=== PATIENT | male | born 1990 | race Caucasian/White ===

== ENCOUNTER → 2018-12-28 | Outpatient (CLI) | payer OTHER ==
--- NOTE | 2018-12-30 07:49 | REP ---
MRI RIGHT KNEE WITHOUT CONTRAST: 12/28/2018. Clinical history: Strain/sprain of the lateral collateral ligament right knee. Technique: Axial fat suppressed T2, coronal sagittal T1 with fat suppressed T2 and sagittal PD with T2 sequences. Findings: No prior study. Sagittal images show the PCL intact. The ACL does show contiguous fibers but some increased signal in the mid to distal course of the fibers suggest some strain. There is some fluid in the intercondylar notch. I cannot see a definite tear of the ACL. Medial meniscus shows some fluid posterior to the posterior horn and deep to the capsule representing meniscocapsular injury. The anterior and posterior horns of the medial compartment show the meniscus without tear communicating to an articular surface. There is no loose body or bucket-handle displaced tear. There is some chondromalacia grade 1 femoral condyle at the tibial plateau. No bone bruise or fracture. Medial collateral ligamentous complex and patellar retinacula were intact. There is no popliteal fossa cyst. The lateral meniscus shows posterior horn and anterior horn without intrasubstance signal tear communicating to an articular surface. There is no loose body or bucket-handle tear. There is some grade 1 chondromalacia in the lateral compartment. Popliteus tendon was intact. Proximal tibiofibular articulation was also intact and unremarkable. No bone bruise, fracture or osteochondral lesion in the lateral compartment. Lateral collateral ligamentous complex shows some increased signal that may reflect some strain. I do not see a definite tear of the lateral patellar retinaculum. It showed some fluid deep to it and some thickening of that retinaculum suggesting some chronic strain. Attachment to the lateral patella was unremarkable. The patella shows some grade 1 chondromalacia. There is no patellar subluxation with the patella sitting well in the trochlear groove. I see no quadriceps or patellar tendon signal abnormality. There is some mild prepatellar tendon subcutaneous edema that may reflect some prepatellar bursitis. Small suprapatellar effusion noted. No definite loose body. Impression: 1. There is meniscocapsular injury with fluid between the posterior horn and capsule about the medial meniscus. No loose body. 2. Tricompartment grade 1 chondromalacia. 3. Mild strain of the ACL with PCL intact. Fluid in the intercondylar notch and all three joint compartments. 4. Strain of the lateral collateral ligament without definite tear. There is fluid deep to the ligament adjacent to the meniscus. Some mild chronic thickening of the patellar retinaculum laterally. No tear. 5. No bone bruise or fracture. Extensor mechanism intact. There is minor prepatellar subcutaneous edema that might reflect some prepatellar bursitis. Electronically Signed by Luis Valle MD 12/30/2018 09:25 A
== END ==
LOC: M RAD 14:39
PROVIDERS: ATTEND Family Medicine
DX: S83.421S Sprain of lateral collateral ligament of right knee, sequela (principal); M94.261 Chondromalacia, right knee; Y92.89 Other specified places as the place of occurrence of the external cause; Y93.89 Activity, other specified; X58.XXXA Exposure to other specified factors, initial encounter; Y99.8 Other external cause status

== ENCOUNTER → 2023-05-25 | Outpatient (REF) | payer OTHER ==
[2023-05-25 12:30] LABS: IRON (FE) 81 UG/DL (65-175)
[2023-05-25 12:31] LABS: ALBUMIN 3.8 G/DL (3.2-5.2); ALKALINE PHOSPHATASE 57 U/L (46-116); ALT/SGPT 30 U/L (7.0-40); AST/SGOT 16 U/L (<34); BLOOD UREA NITROGEN 13 MG/DL (9-23); CALCIUM LEVEL 9.3 MG/DL (8.5-10.1); CARBON DIOXIDE LEVEL 34 MMOL/L (20-31); CHLORIDE LEVEL 104 MMOL/L (98-107); CHOLESTEROL LEVEL 169 MG/DL (<200); CHOLESTEROL RISK RATIO 2.64 (<5); CORTISOL AM 22.7 UG/DL (4.3-22.4); CREATININE FOR GFR 1.14 MG/DL (0.70-1.30); GLOMERULAR FILTRATION RATE > 60.0 (>60); GLUCOSE, FASTING 105 MG/DL (60-100); HDL CHOLESTEROL 63.8 MG/DL (>40); HEMATOCRIT 43.9 % (42.0-52.0); HEMOGLOBIN 14.9 g/dl (13.5-17.5); LDL CHOLESTEROL 95.4 MG/DL (<100); MEAN CORPUSCULAR HGB CONC 33.9 g/dl (32.0-36.5); MEAN CORPUSCULAR VOLUME 88.5 fl (80.0-96.0); NON-HDL-C 105.2 MG/DL; PLATELET COUNT, AUTOMATED 233 10^3/uL (150-450); RED BLOOD COUNT 4.96 10^6/uL (4.30-6.10); SODIUM LEVEL 141 MMOL/L (136-145); TOTAL PROTEIN 6.1 G/DL (5.7-8.2); TRIGLYCERIDES LEVEL 49 MG/DL (<150); WHITE BLOOD COUNT 5.2 10^3/uL (4.0-10.0)
[2023-05-25 12:32] LABS: FREE T4 1.23 NG/DL (0.89-1.76); THYROID STIMULATING HORMONE 1.674 uIU/ML (0.55-4.78); TOTAL T3 87.7 NG/DL (60.0-181.0)
== END ==
LOC: M SFHCCLAY 07:24
PROVIDERS: ATTEND Family Medicine
DX: E78.2 Mixed hyperlipidemia (principal); N18.2 Chronic kidney disease, stage 2 (mild); R53.82 Chronic fatigue, unspecified; R63.4 Abnormal weight loss

== ENCOUNTER → 2024-03-12 | Outpatient (REF) | payer OTHER | LOC: M LABSMT 08:51 | PROVIDERS: ATTEND Urology | DX: Z30.2 Encounter for sterilization (principal) ==

== ENCOUNTER → 2024-07-15 | Outpatient (REF) | payer OTHER ==
[2024-07-15 11:25] LABS: SEMEN APPEARANCE OPAQUE (OPAQUE); SEMEN VISCOSITY LIQUID (LIQUID); SEMEN VOLUME 1.4 ml (2.0-5.0); SEMEN pH 8.5 (7.0-8.0); WBC CONCENTRATION <=1 M/ml (<=1 M/ml)
== END ==
LOC: M SMT 11:01
PROVIDERS: ATTEND Urology
DX: Z30.2 Encounter for sterilization (principal)